=== PATIENT | male | born 1990 | race Caucasian/White ===

== ENCOUNTER → 2020-09-20 | Outpatient (CLI) | payer OTHER ==
[~2020-09-20] MED LIST: BACTRIM DS TAB1 EACH PO; KEFLEX CAP 500500 MG PO; KEFLEX500 MG PO
== END ==
LOC: CT 15:00
DX: R19.00 Intra-abdominal and pelvic swelling, mass and lump, unspecified site (principal); K43.9 Ventral hernia without obstruction or gangrene
CPT/HCPCS: 74160; Q9967